=== PATIENT | female | born 1990 | race Caucasian/White ===

== ENCOUNTER 2018-11-29 13:01 | Emergency (ER) | payer SELFPAY ==
[~2018-11-29] VITALS: Wt 77.2 kg
[2018-11-29 13:39] VITALS: BP 136/80; PULSE 88; RESP 20
[2018-11-29] MEDS ORDERED: CEPH-443 PO (15:40)
--- NOTE | 2018-11-29 15:42 | ERD ---
ER Documentation Chief Complaint Chief Complaint mid AP, 3 mos without period. unknown if . no NVD, no dysuria. HPI This is a 28-year-old female who presents with generalized mid abdominal pain that she has had 3 days. She is unsure if she is because she has not had her period for 3 weeks but states that 3 months ago she did get a Depo shot. She has increased urinary frequency but no hematuria or dysuria. No nausea vomiting or diarrhea. No fever. No vaginal bleeding. ROS All systems reviewed and are negative except as per history of present illness. Medications Home Meds Active Scripts Cephalexin* (Keflex*) 500 Mg Capsule, 500 MG PO TID for 5 Days, CAP Prov:KAIDEN SWANN PA-C 11/29/18 Allergies Allergies: Coded Allergies: No Known Allergy (Unverified , 11/29/18) PMhx/Soc Medical and Surgical Hx: pt denies Medical Hx, pt denies Surgical Hx Hx Alcohol Use: No Hx Substance Use: No Hx Tobacco Use: No Smoking Status: Never smoker FmHx Family History: No diabetes Physical Exam Vitals Vital Signs Date Temp Pulse Resp B/P (MAP) Pulse Ox O2 O2 Flow FiO2 Time Delivery Rate 11/29/18 98.8 88 20 136/80 3 13:39 (98) Physical Exam INITIAL VITAL SIGNS: Reviewed by me GENERAL: Awake, alert and oriented x 4, well appearing, nontoxic, speaking in full sentences. No acute distress HEAD: Atraumatic NECK: Supple. No masses. Full range of motion. No meningismus. No midline tenderness. RESPIRATORY: Clear to auscultation bilaterally. Symmetric chest wall rise. No wheezing or rales. No accessory muscle use. CV: Regular rate and rhythm. No murmurs, rubs, or gallops. ABDOMEN: Soft, non-distended. Nontender. Negative [place]. Negative [place] point tenderness. No CVA tenderness bilaterally. No guarding. No rebound. Results 24 hrs Laboratory Tests Test 11/29/18 15:23 11/29/18 15:25 Urine Color COLORLESS Urine Clarity SLIGHTLY CLOUDY Urine pH 8.0 Urine Specific [place] 1.006 Urine Ketones NEGATIVE mg/dL Urine Nitrite NEGATIVE mg/dL Urine Bilirubin NEGATIVE mg/dL Urine Urobilinogen NEGATIVE mg/dL Urine Leukocyte Esterase 2+ Derek/ul Urine Microscopic RBC 1 /HPF Urine Microscopic WBC 9 /HPF Urine Squamous Epithelial Cells FEW /HPF Urine Hemoglobin NEGATIVE mg/dL Urine Glucose NEGATIVE mg/dL Urine Total Protein NEGATIVE mg/dl POC Beta HCG, Qualitative NEGATIVE Procedures/MDM The differential diagnosis includes but is not limited to appendicitis, cholelithiasis, cholecystitis, pancreatitis, hepatitis, gastritis, peptic ulcer disease, bowel obstruction, diverticulitis, renal disease including stones, torsion, AAA, pyelonephritis, and others. GI examination is benign she has no tenderness throughout her abdomen and no CVA tenderness. She is afebrile well- appearing. Her test is negative. Urine does show evidence of urinary tract infection and she will be treated outpatient with Keflex. Patient counseled regarding my diagnostic impression and care plan. Prior to discharge all questions answered. Pt agrees with treatment plan and understands strict return precautions. Pt is instructed to follow up with primary care provider within 24-48 hours. Precautionary instructions provided including instructions to return to the ER if not improving or for any worsening or changing symptoms or concerns. Departure Diagnosis: Primary Impression: Cystitis Condition: Stable Patient Instructions: Cystitis Additional Instructions: Llame al doctor LORIN y endy souleymane SRIDEVI PARA DENTRO DE 1-2 PRINCE.Dgale a la secretaria que nosotros le instruimos hacer esta sridevi.Avise o llame si hernandez condicin se empeora antes de la sridevi. Regresa aqui si peor o no mejor. KAIDEN SWANN PA-C November 29, 2018 15:42
== END 2018-11-29 15:45 | disposition home or self-care (01) ==
LOC: FTE 13:01
DX: N30.90 Cystitis, unspecified without hematuria (principal)
CPT/HCPCS: 81001; 81025; 99283